=== PATIENT | female | born 1970 | race Caucasian/White ===

== ENCOUNTER → 2018-09-05 | Outpatient (CLI) | payer OTHER ==
[2015-11-04 13:13] VITALS: BP 130/90
--- NOTE | 2018-09-05 23:27 | RAD ---
Right knee 3 views. HISTORY: Fall with injury, pain 3 views were taken of the right knee. There is a small density at the lateral condyle of the femur on the right probably an old injury. There is no acute fracture. There is no significant joint effusion. IMPRESSION: 1. No acute fracture noted in the right knee. Electronically signed by: James Smart MD (09/05/2018 5:00 PM) [facility]
== END | disposition home or self-care (01) ==
LOC: RAD 15:49
PROVIDERS: ATTEND Physician Assistant
DX: S80.01XA Contusion of right knee, initial encounter (principal); W19.XXXA Unspecified fall, initial encounter; Y93.89 Activity, other specified; Y92.89 Other specified places as the place of occurrence of the external cause; Y99.8 Other external cause status
CPT/HCPCS: 73562